=== PATIENT | male | born 1960 | race Hispanic/Latino ===

== ENCOUNTER 2018-04-11 15:40 | Emergency (ER) | payer OTHER ==
[~2018-04-11] VITALS: Ht 167.6 cm; Wt 80.7 kg
[~2018-04-11 15:40] MED LIST: METFORMIN HCL500 MG PO
--- OUTSIDE RECORDS SUMMARY | 2018-04-11 15:43 | XMS REPORT ---
Author Author [facility] Address Unknown Phone Unavailable Care Team Providers Care Director Of Pharmacy Name Role Phone Unavailable Unavailable Payers Payer Name Policy Type Policy Number Effective Date Expiration Date Problems This patient has no known problems. Allergies, Adverse Reactions, Alerts Allergy Name Allergy Type Status Severity Reaction(s) Onset Date Inactive Date Treating Clinician Comments No Known Allergies DA Active U 2018-02-15 00:00:00 No Known Intolerances DA Active U 2009-11-05 00:00:00 Medications This patient has no known medications.
[2018-04-11] MEDS ORDERED: LISINOPRIL10 MG PO (16:40)
[2018-04-11] MEDS ORDERED: JANUMET XR 50-1 EACH PO (16:40)
[2018-04-11] MEDS ORDERED: CRESTOR10 MG PO (16:40)
[2018-04-11] MEDS ORDERED: CARVEDILOL3.125 MG PO (16:40)
[2018-04-11 21:36] VITALS: BP 166/88
== END 2018-04-11 19:45 | disposition other institution (70) ==
LOC: FSED 15:40
DX: N17.9 Acute kidney failure, unspecified (principal); M86.8X7 Other osteomyelitis, ankle and foot; L03.116 Cellulitis of left lower limb
CPT/HCPCS: 80048; 81003; 85025; 99284